=== PATIENT | male | born 1945 | race Caucasian/White ===

== ENCOUNTER 2023-04-03 09:32 | Day surgery (SDC) | payer OTHER ==
[~2023-04-03] VITALS: Ht 193 cm; Wt 108.0 kg
[2023-04-03] VITALS (17 sets, daily range): BP systolic 143–179; BP diastolic 72–101
[~2023-04-03 09:32] MED LIST: ASPI81CH PO; Acerola C500 MG PO; BENADRYL25 MG PO; Garlic500 MG PO; HYDCHL12.5 PO; LATANOPROST2.5 M3 BOTHEYES; LORA10ER PO; LOSA50 PO; MAGNESIUM PO; METO25 PO; MULVITMIND PO; NYSTRITC TOP
--- NOTE | 2023-04-03 11:28 | NUR ---
Ambulatory in Day Surgery WITH STEADY GAIT. ABLE TO AMBULATE TO RESTROOM AND URINATE. Surgical site prepped with 2% Chlorhexidine cloth wipe. History, Chart, Medications and Allergies reviewed before start of procedure. Lungs clear T/O to Auscultation. Patient confirms NPO status and agrees with scheduled surgery. Pre-Op teaching done. Pt verbalizes understanding. GLASSES PLACED IN PACU. BELONGINGS PLACED UNDER GURN.
--- NOTE | 2023-04-03 19:15 | NUR ---
SHIFT SUMMARY PT A&OX4, VSS/RA, YOSI PO, AWAITING POSTOP VOID, PAIN TREATED WITH TYLENOL AND TORADOL/PAIN 06/23 AT THIS TIME PER PT, WIGGLES TOES/MOVES FEET/REPORTS SLIGHT TINGLING DENIES NUMBNESS. S/P R HEMA, AQUACEL CDI, TEDS/SCDS/POLAR JONATAN ON. REPORT TO JUN HUMPHREY.
--- NOTE | 2023-04-04 04:22 | NUR ---
SHIFT SUMMARY POD 1 R HEMA. PT RESTED WELL T/O NIGHT. AQUACEL DRESSING TO HIP REMAINS CDI WITH POLAR PACK IN PLACE. UP WITH 1 MIN ASSIST USING FWW + GB. YOSI PO. VOIDING. TYLENOL/TORADOL FOR PAIN MANAGEMENT. THERAPY TODAY AND PLAN TO DISCHARGE HOME.
[2023-04-04 04:34] VITALS: BP 134/73
[2023-04-04 04:35] LABS: BASOPHILS ABSOLUTE AUTO 0.03 K/mm3 (0.00-0.23); BASOPHILS PERCENT AUTO 0 % (0-2); EOSINOPHILS PERCENT AUTO 0 % (0-6); Hematocrit 37.1 % (37.0-53.0); Hemoglobin 12.7 g/dL (13.5-17.5); IMMATURE GRAN PERCENT AUTO 1 % (0-1); LYMPHOCYTES ABSOLUTE AUTO 1.06 K/mm3 (0.84-5.20); LYMPHOCYTES PERCENT AUTO 6 % (21-46); MONOCYTES ABSOLUTE AUTO 1.78 K/mm3 (0.16-1.47); MONOCYTES PERCENT AUTO 9 % (4-13); Mean Corpuscular HGB 30.4 pg (26.0-34.0); Mean Corpuscular HGB Conc 34.2 g/dL (31.5-36.5); Mean Corpuscular Volume 89 fL (80-100); Mean Platelet Volume 11.1 fL (9.1-12.4); NEUTROPHILS ABSOLUTE AUTO 16.04 K/mm3 (1.96-9.15); NEUTROPHILS PERCENT AUTO 84 % (41-73); Platelet Count 224 K/mm3 (150-400); RDW Coefficient Variation 12.3 % (11.7-14.2); Red Blood Cell Count 4.18 M/mm3 (4.30-5.90); White Blood Cell Count 19.01 K/mm3 (4.00-11.30)
[2023-04-04 05:01] LABS: Bun/Creatinine Ratio 31.5 (12.0-20.0); Calcium, Blood 8.3 mg/dL (8.5-10.1); Creatinine, Blood 0.83 mg/dL (0.60-1.20); Potassium, Blood 4.2 mmol/L (3.5-5.5)
[2023-04-04 07:23] VITALS: BP 125/67
[2023-04-04] MEDS ORDERED: Percocet 5-3251 EACH PO (09:29)
--- NOTE | 2023-04-04 10:29 | NUR ---
DISCHARGE POD 1 RTHA PT UP AND AMBULATING WELL, MINIMAL PAIN. DRESSING CDI. ALL BELONGINGS SENT WITH PATIENT. ALL INSTRUCTIONS GONE OVER WITH PATIENT AND SPOUSE. PRESCRIPTIONS WITH PATIENT. NO FURTHER QUESTIONS AT THIS TIME.
== END 2023-04-04 10:15 | disposition home or self-care (01) ==
LOC: ORSCMMR 09:32 → ORD 11:00 → SURS 16:35 → ORSCMMR 04-04 10:15
PROVIDERS: Orthopaedic Surgery
PROC: 0SR90JZ Replacement of Right Hip Joint with Synthetic Substitute, Open Approach (ICD-10-PCS; principal; 2023-04-03 11:00)
DX: M16.11 Unilateral primary osteoarthritis, right hip (principal); I10 Essential (primary) hypertension; Z79.899 Other long term (current) drug therapy
CPT/HCPCS: 36415; 72170; 80048; 85025; 97110; 97162; A9270; C1776; J0171; J0690; J0735; J1100; J1170; J1885; J2405; J2704; J2795; J3010; J7120

== ENCOUNTER 2024-03-13 09:12 | Day surgery (SDC) | payer OTHER ==
[~2024-03-13] VITALS: Ht 193 cm; Wt 112.0 kg
[~2024-03-13 09:12] MED LIST changes: +Lactated Ringer's 1,000 ML IV ONE; +Percocet 5-3251 EACH PO
[2024-03-13] MEDS ORDERED: Lactated Ringer's 1,000 ML IV ONE (09:43)
[2024-03-13] MEDS ORDERED: propofoL 50 ML IV ONE (10:55)
[2024-03-13 11:53] VITALS: BP 140/82
== END 2024-03-13 11:52 | disposition home or self-care (01) ==
LOC: ORSCSDS 09:12
PROVIDERS: Surgery
PROC: 0DBM8ZX Excision of Descending Colon, Via Natural or Artificial Opening Endoscopic, Diagnostic (ICD-10-PCS; principal; 2024-03-13 11:15)
PROC: 0DBN8ZX Excision of Sigmoid Colon, Via Natural or Artificial Opening Endoscopic, Diagnostic (ICD-10-PCS; principal; 2024-03-13 11:15)
DX: Z12.11 Encounter for screening for malignant neoplasm of colon (principal); Z86.0101 Personal history of adenomatous and serrated colon polyps; D12.4 Benign neoplasm of descending colon; K63.5 Polyp of colon; E78.5 Hyperlipidemia, unspecified; I10 Essential (primary) hypertension; K57.30 Diverticulosis of large intestine without perforation or abscess without bleeding; K64.8 Other hemorrhoids; K64.4 Residual hemorrhoidal skin tags; Z79.899 Other long term (current) drug therapy
CPT/HCPCS: 88305; J2704; J7120